=== PATIENT | female | born 1960 | race Two or more races ===

== ENCOUNTER 2024-10-02 19:25 | Emergency (ER) | payer MEDICAID, OTHER ==
[~2024-10-02] VITALS: Ht 124.5 cm; Wt 88.9 kg
[2024-10-02 19:35] VITALS: BP 133/84; PULSE 89; RESP 16; TEMP 98.2; O2SAT 99
--- NOTE | 2024-10-02 19:54 | ED.PDOC ---
HPI Allergic reaction HPI Comments PATIENT C/O BILATERAL ARM RASH SINCE TUESDAY. DENIES ANY CHANGES IN HYGIENE PRODUCTS OR DETERGIENTS. TAKES UNKNOWN ALLERGY MEDICINE, LAST TIME WAS LAST NIGHT. DENIES THROAT SWELLING, CHEST PAIN, SHORTNESS OF BREATH, OR DIFFICULTY BREATHING. Chief Complaint: Allergic Reaction Time Seen by MD: 19:31 Reviewed Notes: Nurses Notes, Medications, Allergies Allergies: Coded Allergies: NO KNOWN ALLERGIES (Unverified , 10/02/24) Home Meds Active Scripts Famotidine (PEPCID TABLET) 20 Mg Tb, 1 TAB PO BID for 6 Days, #12 TAB Prov:MAIDA HAMLIN [employer] 10/02/24 Methylprednisolone (Medrol Dosepak) 4 Mg Kael, 4 MG PO UD for 6 Days, #21 TAB UAD Prov:MAIDA HAMLIN [employer] 10/02/24 Information Source: Patient Mode of Arrival: Ambulatory Past Medical History PAST MEDICAL HISTORY: Denies Surgical History: Denies all surgeries SALVAGE SUPERVISOR History: No Pertinent SALVAGE SUPERVISOR History Family History Family History: Unknown Social History Smoker: Non-Smoker Alcohol: Denies ETOH Use Drugs: Denies Drug Use Constitutional: denies: chills, diaphoresis, fatigue, fever, malaise, sweats, weakness, others EENTM: denies: blurred vision, double vision, ear bleeding, ear discharge, ear drainage, ear pain, ear ringing, eye pain, eye redness, hearing loss, mouth pain, mouth swelling, nasal discharge, nose bleeding, nose congestion, nose pain, photophobia, tearing, throat pain, throat swelling, voice changes, others Respiratory: denies: cough, hemoptysis, orthopnea, SOB at rest, shortness of breath, SOB with excertion, stridor, wheezing, others Cardiovascular: denies: chest pain, dizzy spells, diaphoresis, Dyspnea on exertion, edema, irregular heart beat, left arm pain, lightheadedness, palp itations, PND, syncope, others Gastrointestinal: denies: abdomen distended, abdominal pain, blood streaked bowels, constipated, diarrhea, dysphagia, difficulty swallowing, hematemesis, melena, nausea, poor appetite, poor fluid intake, rectal bleeding, rectal pain, vomiting, others Genitourinary: denies: abnormal vagina bleeding, burning, dyspareunia, dysuria, flank pain, frequency, hematuria, incontinence, pain, , vagina discharge, urgency, others Neurological: denies: dizziness, fainting, headache, left sided numbness, left sided weakness, numbness, paresthesia, pre-existing deficit, right sided numbness, right sided weakness, seizure, speech problems, tingling, tremors, weakness, others Musculoskeletal: denies: back pain, gout, joint pain, joint swelling, muscle pain, muscle stiffness, neck pain, others Integumetry: reports: rash; denies: bruises, change in color, change in hair/nails, dryness, laceration, lesions, lumps, wounds, others Allergic/Immunocompromised: denies: Difficulty Healing, Frequent Infections, Hives, Itching, others Hematologic/Lymphatic: denies: anemia, blood clots, easy bleeding, easy bruising, swollen glands, others Endocrine: denies: excessive hunger, excessive sweating, excessive thirst, excessive urination, flushing, intolerance to cold, intolerance to heat, unexplained weight gain, unexplained weight loss, others Psychiatric: denies: anxiety, bipolar disorder, depression, hopeless, panic disorder, schizophrenia, sleepless, suicidal, others Physical Exam General Appearance: No Apparent Distress, Normal HEENT: Pharynx Normal Neck: Full Range of Motion, Normal Respiratory: Lungs Clear, No Accessory Muscle Use, No Respiratory Distress, Normal Breath Sounds Cardiovascular: No Edema, No JVD, No Murmur, No Gallop, Normal Peripheral Pulses, Regular Rate/Rhythm Breast Exam: Deferred Gastrointestinal: No Organomegaly, Non Tender, No Pulsatile Mass, Normal Bowel Sounds, Soft Genitalia: Deferred Pelvic: Deferred Rectal: Deferred Extremities: Normal capillary refill, Normal inspection, Normal range of motion, Non-tender, No pedal edema Musculoskeletal : Apperance: Normal Neurologic: Alert, occupational therapy assistant II-XII nml as Tested, No Motor Deficits, Normal Affect, Normal Mood, No Sensory Deficits Cerebellar Function: Normal Reflexes: Normal Skin: Dry, Normal Color, Rash (Erythemic non indurated rash noted bilateral arms dorsum aspect and chest. Noted excoriations, open lesions or drainage.), Warm Lymphatic: No Adenopathy Was a procedure done? Was a procedure done?: No Differential diagnosis (all) Differential Diagnosis: Anaphylaxis, Angioedema, Bronchospasm, Drug Reaction, Urticaria X-Ray, Labs, Meds, VS Vital Signs Date Time Temp Pulse Resp B/P (MAP) Pulse Ox O2 Delivery O2 Flow Rate FiO2 10/02/24 19:35 98.2 89 16 133/84 (100) 99 98.2 Current Medications Medications (Trade) Dose Ordered Sig/Elyssa Route Start Time Stop Time Status Last Admin Dexamethasone Sodium Phosphate (Decadron Injection) 10 mg ONCE ONCE IM 10/02/24 20:00 10/02/24 20:01 DC 10/02/24 20:28 X-Ray, Labs, Meds, VS Comment PATIENT GIVEN DECADRON 10 MG IM AND PEPCID 40 MG P.O. REPORTS IMPROVEMENT IN SYMPTOMS REQUESTING DISCHARGE AT THIS TIME. SCRIPT MEDROL DOSEPAK AND PEPCID ADVISED TO TAKE MEDICATIONS PRESCRIBED SIDE EFFECTS DISCUSSED. INCREASE P.O. FLUIDS WITH ELECTROLYTES. ADVISED TO FOLLOW UP WITH HER PCP IN 2 DAYS NECESSARY ER RETURN PRECAUTIONS GIVEN PATIENT INDICATES UNDERSTANDING AGREES WITH DISCHARGE PLAN OF CARE Time of 1ST Reevaluation: 19:45 Reevaluation 1ST: Unchanged Time of 2ND Reevaluation: 20:42 Reevaluation 2ND: Improved Patient Education/Counseling: Diagnosis, Treatment, Prognosis, Need For Follow Up Family Education/Counseling: No Family Present Departure 1 Departure Time of Disposition: 20:42 Impression: Primary Impression: Allergic reaction Qualified Codes: T78.40XA - Allergy, unspecified, initial encounter Disposition: HOME / SELF CARE / HOMELESS Condition: Stable e-Prescriptions Famotidine (PEPCID TABLET) 20 Mg Tb 1 TAB PO BID for 6 Days, #12 TAB Prov: MAIDA HAMLINP 10/02/24 Methylprednisolone (Medrol Dosepak) 4 Mg Kael 4 MG PO UD for 6 Days, #21 TAB UAD Prov: MAIDA HAMLIN 10/02/24 Discharged With: Self Critical Care Note Critical Care Time?: No Stability Stability form required: No MAIDA HAMLIN October 02, 2024 19:54
[2024-10-02] MEDS ORDERED: FAMOTIDINE 20 MG TAB PO ONE (20:00)
[2024-10-02] MEDS ORDERED: FAMO20TA10 PO (20:01)
[2024-10-02] MEDS ORDERED: METH4PAK PO (20:01)
[2024-10-02] MEDS: FAMOTIDINE 20 MG TAB PO ONE (20:22)
[2024-10-02] MEDS: DexAMETHasone SOD PHOS 10MG/1ML VIAL INJ IM ONE (20:28)
== END 2024-10-02 20:44 | disposition home or self-care (01) ==
LOC: ER 19:25
DX: T78.40XA Allergy, unspecified, initial encounter (principal); X58.XXXA Exposure to other specified factors, initial encounter
CPT/HCPCS: 96372; 99283; J1100

== ENCOUNTER 2024-11-23 20:01 | Emergency (ER) | payer MEDICAID ==
[~2024-11-23] VITALS: Ht 154.9 cm; Wt 89.0 kg
[2024-11-23 20:45] LABS: Basophils # (auto) 0 10 ^3/uL (0-0.2); Basophils % (auto) 0.7 % (0.0-2.0); Eosinophils # (auto) 0.1 10 ^3/uL (0-0.8); Eosinophils % (auto) 1.7 % (0.0-7.0); Hemoglobin 12.1 g/dL (12.2-16.2); Lymphocytes # (auto) 1.1 10 ^3/uL (0.4-5.4); Lymphocytes % (auto) 17.6 % (10.0-50.0); Mean Corpuscular Hemoglobin 30.9 pg (28.0-32.0); Mean Corpuscular Hgb Conc. 34.5 g/dL (32.0-36.0); Mean Corpuscular Volume 89.6 fL (80.0-100.0); Neutrophils # (auto) 3.8 10 ^3/uL (1.6-8.6); Platelet Count (auto) 238 10^3/uL (140-450); Red Cell Distribution Width 16.6 % (11.8-14.3); White Blood Cell 6.1 10^3/uL (4.4-10.8)
[2024-11-23 20:53] LABS: Chloride 103 mmol/L (98-107); Sodium 140 mmol/L (136-145)
[2024-11-23 20:54] LABS: Anion Gap 9 (5-15); Carbon Dioxide 28 mmol/L (20-31)
[2024-11-23 20:55] LABS: Calcium 9.3 mg/dL (8.7-10.4)
[2024-11-23 20:59] LABS: BUN/Creatinine Ratio 17.1 (10.0-20.0); Blood Urea Nitrogen 12 mg/dL (9-23); INR 0.99 (0.9-1.15); Partial Thromboplastin Time 25.9 SEC (24.5-34.5); Prothrombin Time 10.5 sec (9.3-11.8)
[2024-11-23 21:02] LABS: Glucose 166 mg/dL (74-106); Potassium 3.5 mmol/L (3.5-5.1)
--- NOTE | 2024-11-23 21:20 | DVH ---
PELVIC ULTRASOUND CLINICAL HISTORY: vag bleed pelvic pain h/o EM CA COMPARISON: None TECHNIQUE: Transabdominal grayscale, color-flow Doppler, and duplex Doppler was performed. Findings and impression: Patient is status post total hysterectomy. As visualized, no discrete, sizable mass lesions or fluid collections are appreciated in the imaged p peggy.
--- NOTE | 2024-11-23 21:26 | DVH ---
Exam: CT CT AB PEL WO CON-NO ORAL OR IV History: pelvic pain, vag bleed, h/o EM CA Comparison Study: None TECHNIQUE: Multidetector CT of the abdomen was performed from lung bases to pubic symphysis. Imaging was performed without IV contrast. Axial, coronal and sagittal multiplanar reformats were obtained fr om the axial data set by the technologist. Radiation Dose Information: CT Dose: CTDI volume is 13.1 mGy. Dose-length product is 770.29 mGy*cm FINDINGS: Evaluation of solid organs is limited due to lack of intravenous contrast use. Findings: Lung Bases: No acute or significant lung base finding. Normal heart size. No pleural or pericardial effusion. Liver: The liver is normal in size. No focal lesions. Gallbladder and Biliary Tree: Cholelithiasis Spleen: Unremarkable Pancreas: The pancreas is grossly normal in appearance. Adrenal Glands: Unremarkable Kidneys: Kidneys are grossly normal without calculi or hydronephrosis. Bladder: Grossly unremarkable for degree of distention. Bowel: The stomach is grossly normal in appearance. Small bowel and colon are normal in caliber and d istribution. The appendix is not visualized; however, no secondary findings of acute appendicitis id entified. Ascites: Absent Lymphadenopathy: No mesenteric, retroperitoneal or periportal lymphadenopathy. Abdominal Wall and Mesentery: Unremarkable. Vasculature: The visualized abdominal aorta is normal in size and caliber. Evaluation of abdominal a nd pelvic vessels is limited due to lack of intravenous contrast. Pelvic Organs: Stranding in the ischial rectal fossa adjacent to the vagina on the right left suggest ing infection. No drainable fluid collections. Musculoskeletal: No aggressive focal bony lesions, acute fractures or dislocation. Soft tissues: Unremarkable IMPRESSION: 1. Inflammatory stranding in the ischial rectal fossa on the right and left of the vagina suggesting inflammatory changes with no drainable fluid collections. Radiation optimization: All CT scans at this facility use at least one of these dose optimization te chniques: automated exposure control mA and/or kV adjustment per patient size (includes targeted exa ms where dose is matched to clinical indication) or iterative reconstruction.
--- NOTE | 2024-11-23 22:24 | ED.PDOC ---
SENIOR ANALYST HPI Comments 63-year-old female who came to ER for vaginal bleeding. Patient has history of endometrial cancer, status post chemotherapy yesterday. After the session, started experiencing lower abdominal cramping pain with vaginal spotting. Earlier today, cramping persisted, now with heavier vaginal bleeding with clots, consuming 5 pads all day, fully soaked. Chief Complaint: Vaginal Bleed Time Seen by MD: 22:23 Reviewed Notes: Nurses Notes Allergies: Coded Allergies: NO KNOWN ALLERGIES (Unverified , 10/02/24) Information Source: Patient, Relative Timing: Hours Severity: Moderate Vaginal Discharge: None Vaginal Lesions: None Bleeding Quality: Dark, Clotted Onset Of Mass/Bleeding: Spontaneous Last Consensual [place]: Unknown Associated Signs and Symptoms: Vaginal Bleeding, Abdominal Pain Past Medical History PAST MEDICAL HISTORY: DM, High Lipids, HTN Past Medical History (Other): Endometrial cancer on chemotherapy Surgical History: Hysterectomy PROGRAM OR PROJECT ADMINISTRATOR History: No Pertinent PROGRAM OR PROJECT ADMINISTRATOR History Family History Family History: Reviewed,noncontributory to illness Social History Smoker: Non-Smoker Alcohol: Denies ETOH Use Drugs: Denies Drug Use Lives In: Home Constitutional: denies: chills, diaphoresis, fatigue, fever, malaise, sweats, weakness, others EENTM: denies: blurred vision, double vision, ear bleeding, ear discharge, ear drainage, ear pain, ear ringing, eye pain, eye redness, hearing loss, mouth pain, mouth swelling, nasal discharge, nose bleeding, nose congestion, nose pain, photophobia, tearing, throat pain, throat swelling, voice changes, others Respiratory: denies: cough, hemoptysis, orthopnea, SOB at rest, shortness of breath, SOB with excertion, stridor, wheezing, others Cardiovascular: denies: chest pain, dizzy spells, diaphoresis, Dyspnea on exertion, edema, irregular heart beat, left arm pain, lightheadedness, palpitations, PND, syncope, others Gastrointestinal: reports: abdominal pain; denies: abdomen distended, blood streaked bowels, constipated, diarrhea, dysphagia, difficulty swallowing, hematemesis, melena, nausea, poor appetite, poor fluid intake, rectal bleeding, rectal pain, vomiting, others Genitourinary: reports: abnormal vagina bleeding; denies: burning, dyspareunia, dysuria, flank pain, frequency, hematuria, incontinence, pain, , vagina discharge, urgency, others Neurological: denies: dizziness, fainting, headache, left sided numbness, left sided weakness, numbness, paresthesia, pre-existing deficit, right sided numbness, right sided weakness, seizure, speech problems, tingling, tremors, weakness, others Musculoskeletal: denies: back pain, gout, joint pain, joint swelling, muscle pain, muscle stiffness, neck pain, others Integumetry: denies: bruises, change in color, change in hair/nails, dryness, laceration, lesions, lumps, rash, wounds, others Allergic/Immunocompromised: denies: Difficulty Healing, Frequent Infections, Hives, Itching, others Hematologic/Lymphatic: denies: anemia, blood clots, easy bleeding, easy bruising, swollen glands, others Endocrine: denies: excessive hunger, excessive sweating, excessive thirst, excessive urination, flushing, intolerance to cold, intolerance to heat, unexplained weight gain, unexplained weight loss, others Psychiatric: denies: anxiety, bipolar disorder, depression, hopeless, panic disorder, schizophrenia, sleepless, suicidal, others Physical Exam General Appearance: No Apparent Distress, Obese HEENT: Other (Pupils and face symmetric. Moist mucous membranes.) Neck: Full Range of Motion, Normal Inspection Respiratory: Lungs Clear, No Accessory Muscle Use, No Respiratory Distress, Normal Breath Sounds Cardiovascular: No Edema, No JVD, Regular Rate/Rhythm Breast Exam: Deferred Gastrointestinal: Non Tender, Soft Genitalia: Deferred Pelvic: Deferred Rectal: Deferred Extremities: Normal inspection, Normal range of motion, Non-tender, No pedal edema Neurologic: Alert (Oriented x4), Normal Affect, Normal Mood Cerebellar Function: NOT DONE Reflexes: NOT DONE Skin: Dry, Normal Color, Warm Lymphatic: NOT DONE Was a procedure done? Was a procedure done?: No Differential Diagnosis (PROGRAM OR PROJECT ADMINISTRATOR) Vaginal Bleeding: Blood Loss Anemia, UTI, Other (Infection, coagulopathy, among others) X-Ray, Labs, Meds, VS Vital Signs Date Time Temp Pulse Resp B/P (MAP) Pulse Ox O2 Delivery O2 Flow Rate FiO2 11/23/24 22:47 98.4 85 17 123/65 (84) 98 98.4 11/23/24 21:18 98.1 87 18 133/70 (91) 98 98.1 Lab Test 11/23/24 20:37 Range/Units White Blood Count 6.1 4.4-10.8 10^3/uL Red Blood Count 3.90 L 4.0-5.20 10^6/uL Hemoglobin 12.1 L 12.2-16.2 g/dL Hematocrit 35.0 L 36.0-46.0 % Mean Corpuscular Volume 89.6 80.0-100.0 fL Mean Corpuscular Hemoglobin 30.9 28.0-32.0 pg Mean Corpuscular Hemoglobin Concent 34.5 32.0-36.0 g/dL Red Cell Distribution Width 16.6 H 11.8-14.3 % Platelet Count 238 140-450 10^3/uL Mean Platelet Volume 7.2 6.9-10.8 fL Neutrophils (%) (Auto) 63.0 37.0-80.0 % Lymphocytes (%) (Auto) 17.6 10.0-50.0 % Monocytes (%) (Auto) 17.0 H 0.0-12.0 % Eosinophils (%) (Auto) 1.7 0.0-7.0 % Basophils (%) (Auto) 0.7 0.0-2.0 % Neutrophils # (Auto) 3.8 1.6-8.6 10 ^3/uL Lymphocytes # (Auto) 1.1 0.4-5.4 10 ^3/uL Monocytes # (Auto) 1.0 0-1.3 10 ^3/uL Eosinophils # (Auto) 0.1 0-0.8 10 ^3/uL Basophils # (Auto) 0 0-0.2 10 ^3/uL Nucleated Red Blood Cells 0.0 % Prothrombin Time 10.5 9.3-11.8 sec Prothrombin Time INR 0.99 0.9-1.15 Activated Partial Thromboplast Time 25.9 24.5-34.5 SEC Sodium Level 140 136-145 mmol/L Potassium Level 3.5 3.5-5.1 mmol/L Chloride Level 103 98-107 mmol/L Carbon Dioxide Level 28 20-31 mmol/L Anion Gap 9 5-15 Blood Urea Nitrogen 12 9-23 mg/dL Creatinine 0.70 0.550-1.02 mg/dL Glomerular Filtration Rate Calc 97 >90 mL/min BUN/Creatinine Ratio 17.1 10.0-20.0 Serum Glucose 166 H 74-106 mg/dL Calcium Level 9.3 8.7-10.4 mg/dL PROCEDURE(s): PELUS - PELVIC REASON: vag bleed pelvic pain h/o EM CA ORDER NUMBER(s): [id number], ACCESSION NUMBER(s): [id number] PELVIC ULTRASOUND CLINICAL HISTORY: vag bleed pelvic pain h/o EM CA COMPARISON: None TECHNIQUE: Transabdominal grayscale, color-flow Doppler, and duplex Doppler was performed. Findings and impression: Patient is status post total hysterectomy. As visualized, no discrete, sizable mass lesions or fluid collections are appreciated in the imaged pelvis. EDURE(s): ABPL - CT AB PEL WO CON-NO ORAL OR IV REASON: pelvic pain, vag bleed, h/o EM CA ORDER NUMBER(s): [id number], ACCESSION NUMBER(s): [id number] Exam: CT CT AB PEL WO CON-NO ORAL OR IV History: pelvic pain, vag bleed, h/o EM CA Comparison Study: None TECHNIQUE: Multidetector CT of the abdomen was performed from lung bases to pubic symphysis. Imaging was performed without IV contrast. Axial, coronal and sagittal multiplanar reformats were obtained from the axial data set by the technologist. Radiation Dose Information: CT Dose: CTDI volume is 13.1 mGy. Dose-length product is 770.29 mGy*cm FINDINGS: Evaluation of solid organs is limited due to lack of intravenous contrast use. Findings: Lung Bases: No acute or significant lung base finding. Normal heart size. No pleural or pericardial effusion. Liver: The liver is normal in size. No focal lesions. Gallbladder and Biliary Tree: Cholelithiasis Spleen: Unremarkable Pancreas: The pancreas is grossly normal in appearance. Adrenal Glands: Unremarkable Kidneys: Kidneys are grossly normal without calculi or hydronephrosis. Bladder: Grossly unremarkable for degree of distention. Bowel: The stomach is grossly normal in appearance. Small bowel and colon are normal in caliber and distribution. The appendix is not visualized; however, no secondary findings of acute appendicitis identified. Ascites: Absent Lymphadenopathy: No mesenteric, retroperitoneal or periportal lymphadenopathy. Abdominal Wall and Mesentery: Unremarkable. Vasculature: The visualized abdominal aorta is normal in size and caliber. Evaluation of abdominal and pelvic vessels is limited due to lack of intravenous contrast. Pelvic Organs: Stranding in the ischial rectal fossa adjacent to the vagina on the right left suggesting infection. No drainable fluid collections. Musculoskeletal: No aggressive focal bony lesions, acute fractures or dislocation. Soft tissues: Unremarkable IMPRESSION: 1. Inflammatory stranding in the ischial rectal fossa on the right and left of the vagina suggesting inflammatory changes with no drainable fluid collections. Radiation optimization: All CT scans at this facility use at least one of these dose optimization techniques: automated exposure control mA and/or kV adjustment per patient size (includes targeted exams where dose is matched to clinical indication) or iterative reconstruction. X-Ray, Labs, Meds, VS Comment 63-year-old female with a history of hypertension, diabetes, dyslipidemia and currently being treated for endometrial cancer with chemotherapy complaining of lower abdominal cramping and vaginal bleeding Vitals unremarkable Exam unremarkable Rhythm strip independently interpreted by me: Sinus rhythm, rate 87, no ectopy. Pelvic ultrasound Findings and impression: Patient is status post total hysterectomy. As visualized, no discrete, sizable mass lesions or fluid collections are appreciated in the imaged pelvis. CT abdomen and pelvis IMPRESSION: 1. Inflammatory stranding in the ischial rectal fossa on the right and left of the vagina suggesting inflammatory changes with no drainable fluid collections. CBC remarkable for hemoglobin 12.1, hematocrit 35, basic metabolic panel unremarkable, coagulation panel normal Patient declined any medication in the ED. On re-evaluation, patient was well-appearing with stable vitals. Patient and daughter were advised regarding workup findings, my impression, treatment plan and follow-up recommendations, specifically to follow-up tomorrow (or sooner if necessary) in ED for repeat CBC if heavy bleeding continues, and to follow-up with her oncologist as soon as possible for re-evaluation. Time of 1ST Reevaluation: 22:19 Reevaluation 1ST: Unchanged Patient Education/Counseling: Diagnosis, Treatment Family Education/Counseling: Diagnosis, Treatment Departure 1 Departure Time of Disposition: 23:01 Impression: Primary Impression: Vaginal bleeding Disposition: 01 HOME / SELF CARE / HOMELESS Condition: Stable Additional Instructions: Your blood tests were unremarkable. Your imaging studies did not show any sp ecific abnormality which would explain the bleeding. Please see the reports below. Return to ER for worsening pain, persistent heavy bleeding, or any other concern. Follow-up with [facility] as soon as possible for re-evaluation. [address] [address] Ph: [phone] DIAGNOSTIC IMAGING Diagnostic Imaging Report : [id number] Signed PATIENT: TAMAR ELKINS ACCT: [id number] UNIT: [id number] : 1960 LOC: ER ROOM / BED: / AGE / SEX: 63 / F ADM STATUS: REG ER SERVICE 28 ORDERING PHYSICIAN: RUPAL LAMBERT MD PROCEDURE(s): PELUS - PELVIC REASON: vag bleed pelvic pain h/o EM CA ORDER NUMBER(s): [id number], ACCESSION NUMBER(s): [id number] PELVIC ULTRASOUND CLINICAL HISTORY: vag bleed pelvic pain h/o EM CA COMPARISON: None TECHNIQUE: Transabdominal grayscale, color-flow Doppler, and duplex Doppler was performed. Findings and impression: Patient is status post total hysterectomy. As visualized, no discrete, sizable mass lesions or fluid collections are appreciated in the imaged pelvis. ATED BY: HENRY THOMAS MD DICTATED DATE/TIME: 11/23/242116 [address] [address] Ph: [phone] DIAGNOSTIC IMAGING Diagnostic Imaging Report : [id number] Signed PATIENT: TAMAR ELKINS ACCT: [id number] UNIT: [id number] : 1960 LOC: ER ROOM / BED: / AGE / SEX: 63 / F ADM STATUS: REG ER SERVICE 28 ORDERING PHYSICIAN: RUPAL LAMBERT MD PROCEDURE(s): ABPL - CT AB PEL WO CON-NO ORAL OR IV REASON: pelvic pain, vag bleed, h/o EM CA ORDER NUMBER(s): [id number], ACCESSION NUMBER(s): [id number] Exam: CT CT AB PEL WO CON-NO ORAL OR IV History: pelvic pain, vag bleed, h/o EM CA Comparison Study: None TECHNIQUE: Multidetector CT of the abdomen was performed from lung bases to pubic symphysis. Imaging was performed without IV contrast. Axial, coronal and sagittal multiplanar reformats were obtained from the axial data set by the technologist. Radiation Dose Information: CT Dose: CTDI volume is 13.1 mGy. Dose-length product is 770.29 mGy*cm FINDINGS: Evaluation of solid organs is limited due to lack of intravenous contrast use. Findings: Lung Bases: No acute or significant lung base finding. Normal heart size. No pleural or pericardial effusion. Liver: The liver is normal in size. No focal lesions. Gallbladder and Biliary Tree: Cholelithiasis Spleen: Unremarkable Pancreas: The pancreas is grossly normal in appearance. Adrenal Glands: Unremarkable Kidneys: Kidneys are grossly normal without calculi or hydronephrosis. Bladder: Grossly unremarkable for degree of distention. Bowel: The stomach is grossly normal in appearance. Small bowel and colon are normal in caliber and distribution. The appendix is not visualized; however, no secondary findings of acute appendicitis identified. Ascites: Absent Lymphadenopathy: No mesenteric, retroperitoneal or periportal lymphadenopathy. Abdominal Wall and Mesentery: Unremarkable. Vasculature: The visualized abdominal aorta is normal in size and caliber. Evaluation of abdominal and pelvic vessels is limited due to lack of intravenous contrast. Pelvic Organs: Stranding in the ischial rectal fossa adjacent to the vagina on the right left suggesting infection. No drainable fluid collections. Musculoskeletal: No aggressive focal bony lesions, acute fractures or dislocation. Soft tissues: Unremarkable IMPRESSION: 1. Inflammatory stranding in the ischial rectal fossa on the right and left of the vagina suggesting inflammatory changes with no drainable fluid collections. Radiation optimization: All CT scans at this facility use at least one of these dose optimization techniques: automated exposure control mA and/or kV adjustment per patient size (includes targeted exams where dose is matched to clinical indication) or iterative reconstruction. ATED BY: ELMA GARZA Jr., DO DICTATED DATE/TIME: 11/23/242123 Discharged With: Relative Critical Care Note Critical Care Time?: No Stability Stability form required: No Heart Score Heart Score: Heart Score Response (Comments) Value History N/A 0 EKG N/A 0 Age N/A 0 Risk Factors N/A 0 Troponin N/A 0 Total 0 I personally scribed for RUPAL LAMBERT MD ([email or web address]) on 11/23/24 at 22:24. Electronically submitted by Tevin Hamilton ([facility]). RUPAL LAMBERT MD Nov 23, 2024 22:24
[2024-11-23 22:47] VITALS: BP 123/65; PULSE 85; RESP 17; TEMP 98.4; O2SAT 98
== END 2024-11-23 23:19 | disposition home or self-care (01) ==
LOC: ER 20:01
DX: N93.9 Abnormal uterine and vaginal bleeding, unspecified (principal); I10 Essential (primary) hypertension; E11.9 Type 2 diabetes mellitus without complications; E78.5 Hyperlipidemia, unspecified; Z90.710 Acquired absence of both cervix and uterus; Z92.21 Personal history of antineoplastic chemotherapy
CPT/HCPCS: 36415; 74176; 76856; 80048; 85025; 85610; 85730